=== PATIENT | male | born 1955 | race Caucasian/White ===

== ENCOUNTER 2018-06-06 08:08 | Observation (INO) | payer BC ==
[~2018-06-06] VITALS: Ht 174.5 cm; Wt 74.4 kg
[~2018-06-06 08:08] MED LIST: ASPIRIN81 M1 PO; BENTYL10 MG PO; Carafate PO; DEXILANT60 MG PO; LIPITOR10 MG PO; LIPITOR40 MG PO; LO-DOSE ASPIRIN81 M1 PO; METOPROLOL SUCC50 MG PO; PRILOSEC40 MG PO; PROTONIX40 MG PO; VITAMIN D31000 UNI2 PO; Xanax PO; Zantac PO; [UNRECOGNIZED DRUG - OTHER] PO
[2018-06-06 09:15] LABS: HEMATOCRIT 40.7 % (38.0-50.0); HEMOGLOBIN 14.4 G/DL (12.5-16.6); MCH 33.5 PG (29.0-34.0); MCHC 35.4 G/DL (30.0-36.0); MCV 94.7 FL (86-99); PLATELET COUNT 237 K/uL (156-360); RBC DIS.WIDTH-CV 12.6 % (11.8-14.6); RBC DIS.WIDTH-SD 43.9 % (39-53); WHITE BLOOD COUNT 5.3 K/uL (4.1-10.2)
[2018-06-06 09:24] LABS: CHLORIDE 105 mEq/L (99-109); POTASSIUM 4.8 mEq/L (3.7-5.4); SODIUM 140 mEq/L (136-147)
[2018-06-06 09:25] LABS: GLUCOSE 111 mg/dL (70-99)
[2018-06-06 09:29] LABS: CREATININE 0.9 mg/dL (0.6-1.3); GFR ESTIMATE (CALCULATED) > 59 mL/min/ (58.99-99999)
[2018-06-06 09:30] LABS: UREA NITROGEN (BUN) 11 mg/dL (9-23)
[2018-06-06 09:36] LABS: TROP-I INTERPRETATION NEGATIVE; TROPONIN-I < 0.01 ng/mL (0.0-0.30)
[2018-06-06] MEDS ORDERED: DICYCLOMINE HCL10 MG PO (11:16)
[2018-06-06] MEDS ORDERED: RANITIDINE HCL300 MG PO (11:17)
[2018-06-06] MEDS ORDERED: TAMSULOSIN HCL0.4 MG PO (11:17)
[2018-06-06] MEDS ORDERED: MAGNESIUM400 M1 PO (11:18)
[2018-06-06 12:50] VITALS: BP 145/87
[2018-06-06 13:34] LABS: HDL CHOLESTEROL 58 MG/DL (Desirable>=40); LDL CHOLESTEROL 117 mg/dL (Desirable<100); NON-HDL CHOLESTEROL 128 mg/dL (Desirable<160); TOTAL CHOLESTEROL 186 mg/dL (Desirable<200); TRIGLYCERIDES 55 MG/DL (Normal: <150)
[2018-06-06 15:17] LABS: APPEARANCE CLEAR ((CLEAR)); BILIRUBIN NEGATIVE; BLOOD NEGATIVE; COLOR STRAW ((YELLOW)); GLUCOSE (STRIP) NEGATIVE; KETONES NEGATIVE; LEUKOCYTES NEGATIVE; NITRITE NEGATIVE; PROTEIN (STRIP) NEGATIVE; SPECIFIC GRAVITY 1.004 (1.000-1.030); UCUL ADDED? NO; UROBILINOGEN 0.2 MG/DL (0.2-1.0)
[2018-06-06 17:05] VITALS: BP 137/72
[2018-06-06 19:54] VITALS: BP 156/83
[2018-06-06 23:48] VITALS: BP 121/70
[2018-06-07 04:39] VITALS: BP 122/71
[2018-06-07 07:28] VITALS: BP 133/75
[2018-06-07 09:21] LABS: TROP-I INTERPRETATION NEGATIVE; TROPONIN-I < 0.01 ng/mL (0.0-0.30)
[2018-06-07 11:55] VITALS: BP 103/67
[2018-06-07 14:55] LABS: TROP-I INTERPRETATION NEGATIVE; TROPONIN-I < 0.01 ng/mL (0.0-0.30)
[2018-06-07 15:10] VITALS: BP 138/81
== END 2018-06-07 19:10 | disposition home or self-care (01) ==
LOC: EME 08:08 → EDOF 12:00 → 4SOUTH 12:00 → EDOF 12:00 → ENRESERV 12:08 → 4SOUTH 12:45
PROVIDERS: Emergency Medicine; Family Medicine
DX: R07.89 Other chest pain (principal); Q24.9 Congenital malformation of heart, unspecified; I10 Essential (primary) hypertension; E78.5 Hyperlipidemia, unspecified; J43.9 Emphysema, unspecified; K21.9 Gastro-esophageal reflux disease without esophagitis; Z87.11 Personal history of peptic ulcer disease; F10.20 Alcohol dependence, uncomplicated; Z87.19 Personal history of other diseases of the digestive system; Q27.33 Arteriovenous malformation of digestive system vessel; F17.200 Nicotine dependence, unspecified, uncomplicated
CPT/HCPCS: 71045; 80048; 80061; 81003; 84484; 85027; 93005; 99281; 99285; G0378; J1650